=== PATIENT | male | born 1995 | race Caucasian/White ===

== ENCOUNTER → 2018-08-13 16:48 | Outpatient (CLI) | payer BC, SELFPAY ==
--- NOTE | 2018-08-13 16:53 | US_ITS ---
STUDY: RENAL ULTRASOUND - COMPLETE REASON FOR EXAM: Male, 22 years old. Hypertension TECHNIQUE: Ultrasound evaluation of the kidneys was performed with real-time and static javier-scale imaging. COMPARISON: None. FINDINGS: RIGHT KIDNEY: Normal location of the right kidney, which is normal in size. The right kidney measures 11.9 x 6.6 x 5.5 cm. There is a normal cortex of the right kidney. The renal cortex measures 2.3 cm. There is no right renal mass or cyst. There are no right renal calculi. There is no right hydronephrosis. DISTAL RIGHT URETER: There is non-visualization of the distal right ureter. There is a visualized right ureteral jet. LEFT KIDNEY: Normal location of the left kidney, which is normal in size. The left kidney measures 11.7 x 5.7 x 5.5 cm. There is a normal cortex of the left kidney. The renal cortex measures 2.7 cm. There is no left renal mass or cyst. There are no left renal calculi. There is no left hydronephrosis. DISTAL LEFT URETER: There is non-visualization of the distal left ureter. There is a visualized left ureteral jet. BLADDER: The distended urinary bladder has a volume of 859 ml. There is a normal wall thickness of the distended urinary bladder. There is no demonstrated mass within the urinary bladder. There are no demonstrated bladder calculi. US/Kidney and Bladder IMPRESSION: Normal ultrasound of the kidneys and urinary bladder. Electronically Signed: Jasson Polanco DO at 20:08 EST Tel [phone], Service support ,
== END ==
PROVIDERS: Family Provider Nurse Practitioner; PCP Nurse Practitioner; Referring Provider Nurse Practitioner; Visit Provider Nurse Practitioner
DX: I10 Essential (primary) hypertension (principal)
CPT/HCPCS: 76770

== ENCOUNTER 2019-02-03 10:19 | Emergency (ER) | payer SELFPAY ==
[2019-02-03 10:19] VITALS: BP 169/98; PULSE 91; RESP 16; TEMP 36.1; O2SAT 98; BMI 35.6
--- NOTE | 2019-02-03 10:49 | RAD_ITS ---
STUDY: X-RAY CHEST REASON FOR EXAM: Male, 23 years old. Chest pain TECHNIQUE: PA and lateral views of the chest. COMPARISON: None. FINDINGS: The lungs are clear and expanded. There is no demonstrated pleural abnormality. Normal size heart. Normal mediastinum and zack. Normal visualized pulmonary arteries. Normal visualized aortic arch and descending thoracic aorta. Normal visualized thoracic spine. Normal visualized ribs, clavicles, and shoulders. There is no demonstrated abnormality of the visualized soft tissue structures of the upper abdomen. RAD/Chest PA and Lateral IMPRESSION: Normal x-ray examination of the chest. Electronically Signed: Maxine Lee, at 12:32 EDT Tel , Service support ,
--- NOTE | 2019-02-03 10:49 | EKG12_ITS ---
Test Reason : CP Blood Pressure : / mmHG Vent. Rate : 071 BPM Atrial Rate : 071 BPM P-R Int : 152 ms QRS Dur : 098 ms QT Int : 360 ms P-R-T Axes : 035 032 034 degrees QTc Int : 391 ms Sinus rhythm with marked sinus arrhythmia Otherwise normal ECG Confirmed by EVON ALVAREZ ([id number]), editor magazine DARRELL DEL VALLE ([id number]) on 02/09/2019 9:43:15 AM Referred By: KAVITA Confirmed By:EVON ALVAREZ
--- NOTE | 2019-02-03 10:50 | ED.VISSUMM ---
- ER Visit Summary Date of Service: 02/03/19 Chief Complaint: Chest pain, dizziness, shortness of breath History of Present Illness: The patient is a 23 M who presents with chest pain, dizziness, and shortness of breath that has been constant for the past few months. Patient states his lisinopril was stopped approximately 4 to 6 months ago. Patient states his symptoms began approximately 1 to 2 months after stopping the lisinopril. Patient states that he check his blood pressure at home and it was 169/109. Patient then went to [facility]. Patient states he had an EKG and an IV done at that time. Patient admits to some nausea. Patient admits to some dysuria. Patient admits to fever of 101 at home. Physical Examination: Vital signs are stable for slightly elevated blood pressure 169/98. Patient is afebrile. Patient is in no acute distress. Oral mucosa is pink and moist. Neck is supple. Trachea is midline. There is no JVD noted. Heart was regular rate and rhythm. Lungs are clear and equal bilateral. Abdomen is soft. Bowel sounds are normal. There is no tenderness. There is no guarding noted. Skin is warm dry. Cranial nerves II through XII are intact. There are no focal motor or sensory deficits noted. The remaining physical exam is within normal limits. Test Results: EKG showed normal sinus rhythm with a rate of 71. There are no acute ST or T wave changes. CBC, basic metabolic profile, and troponin were obtained and were all normal. PA and lateral chest x-ray does not show any acute cardiopulmonary process. Emergency Department Course and Treatment: Patient was given a dose of lisinopril here. Patient's blood pressure improved after this. Patient was feeling better on reevaluation. Patient was given a prescription for lisinopril. Patient was instructed to follow-up with his primary care physician in 5 to 7 days. Patient understood and was agreeable with the plan. All questions were answered. Disposition: Discharge home Impression: 1. Hypertension This note was generated with [employer] dictation software. It may contain incorrect words, spelling, and punctuation that were not noted in review of the chart prior to signing ED Disposition - Plan for ED Patient: Disposition: Home or Assisted Living Diagnosis: Hypertension Instructions: HYPERTENSION, New (Begin Treatment) Prescriptions: Lisinopril [Zestril] 10 mg PO DAILY #30 tab Prescription Printed Referrals: Breanna Hernández, CLIENT SUPPORT REPRESENTATIVE-C [Primary Care Provider] - 5-7 Days
--- NOTE | 2019-02-03 10:53 | NURSING ---
NO OLD EKGS
[2019-02-03 11:14] LABS: Absolute Lymphocyte Count 1.88 X10^3/uL (0.83-4.51); Absolute Neutrophil Count 3.9 X10^3/uL (2.0-7.7); Basophil# 0.04 X10^3/uL; Basophil% 0.6 % (0-1); Eosinophil# 0.06 X10^3/uL; Eosinophils% 0.9 % (0-5); Hematocrit 47.5 % (40-54); Hemoglobin 16.5 g/dL (13.0-16.5); Lymphocyte # 1.88 X10^3/ul (4.0); Lymphocyte % 29.6 % (19-41); Mean Corp Hgb Conc 34.7 g/dL (32-36); Mean Corpuscular Hgb 29.1 pg (27.0-32.0); Mean Corpuscular Volume 83.8 fL (80-94); Mean Platelet Vol. 9.6 fl (6.2-12.0); Monocyte# 0.48 X10^3/uL; Monocyte% 7.6 % (0-10); NRBC Flagged by Analyzer 0 % (0-5); Neutrophil # 3.87 X10^3/uL (2.7-7.7); Platelet Count 211 K/mm3 (150-450); RBC Distribution Width CV 11.6 % (11.6-14.6); Red Blood Count 5.67 M/mm3 (4.6-6.2); White Blood Count 6.4 K/mm3 (4.4-11.0)
[2019-02-03 11:33] LABS: Anion Gap 2 (5-15); BUN 13 mg/dL (7-18); BUN/Creat Ratio 14.8 RATIO (10-20); Chloride 107 mmol/L (98-107); Creatinine, Serum 0.88 mg/dL (0.70-1.30); EST Glomerular Filtration Rate 116 mL/min (>60); Est Glom Filt Rate - Afr Amer 141 mL/min (>60); Estimated Creatinine Clearance 150.06 ml/min; Glucose 105 mg/dL (74-106); Potassium 4.4 mmol/L (3.5-5.1); Sodium Level 141 mmol/L (136-145)
[2019-02-03] MEDS: Lisinopril 10 MG Tablet PO (11:58)
[2019-02-03 11:59] VITALS: BP 120/65; PULSE 66; RESP 25; O2SAT 99
[2019-02-03 12:49] VITALS: BP 127/83; PULSE 61; RESP 20; O2SAT 99
[2019-02-03 13:51] VITALS: BP 118/78; PULSE 61; RESP 16; O2SAT 99
== END 2019-02-03 13:52 | disposition home or self-care (01) ==
PROVIDERS: Emergency Provider Emergency Medicine; Family Provider Nurse Practitioner; PCP Nurse Practitioner
DX: I10 Essential (primary) hypertension (principal); R07.9 Chest pain, unspecified; R30.0 Dysuria; R11.0 Nausea; M54.9 Dorsalgia, unspecified; M54.2 Cervicalgia; R06.00 Dyspnea, unspecified; F17.220 Nicotine dependence, chewing tobacco, uncomplicated; Z79.899 Other long term (current) drug therapy
CPT/HCPCS: 71046; 80048; 84484; 85025; 93005; 99285; A4216

== ENCOUNTER 2021-01-01 19:29 | Emergency (ER) | payer SELFPAY ==
[2021-01-01 19:30] VITALS: BP 164/93; PULSE 100; RESP 16; TEMP 36.4; O2SAT 98; BMI 37.4
--- NOTE | 2021-01-01 20:29 | EDS_ITS ---
HPI History of Present Illness Chief Complaint: Cough Informant: patient and spouse/S.O. Narrative Narrative: 25-year-old male presents the emergency department for the evaluation of cough and vomiting. Patient states that he had a slight cough yesterday but went to work today feeling fine. He leaves work at approximately 1500 hrs. when he got to his car began to have dry heaves and a lot of nausea. His cough seemed to also worsened. He feels generalized body aches. No reported fevers. He notes that his chest is sore in the center of his chest when he coughs and when he vomits. No diarrhea. He recently traveled last week to [place] for vacation. No other family members are ill. [facility] Medical History Diabetes Osteoporosis Home Medications lisinopril 10 mg PO DAILY #30 tab 02/03/19 [Rx Last Taken Unknown] metformin 500 mg PO BID 01/01/21 [History Last Taken Unknown] ondansetron 4 mg PO Q6H PRN PRN #10 tab 01/01/21 [Rx Last Taken Unknown] Allergy/AdvReac Type Severity Reaction Status Date / Time No Known Allergies Allergy Verified 02/03/19 10:20 Social History (Updated 01/01/21 @ 20:[address] Roscoe Joe DO) Smoking Status: Never smoker substance use type: does not use ROS ROS ED Constitutional Constitutional ED: Denies chills or weight loss Eyes Eyes: Denies change in vision or diplopia ENT ENT ED: Denies ear pain, rhinorrhea or sore throat Cardiovascular Cardiovascular: Denies chest pain, orthopnea, palpitations or racing heartbeat Respiratory/Chest Respiratory/Chest: Reports cough; Denies dyspnea or orthopnea Gastrointestinal Gastrointestinal: Reports nausea and vomiting; Denies abdominal pain or diarrhea Genitourinary Genitourinary ED: Denies dysuria, hematuria or urinary frequency Musculoskeletal Musculoskeletal: Reports myalgias; Denies arthralgias Integumentary Denies abscess or rash Neurologic Neurologic: Denies headache(s) or weakness Psychiatric Psychiatric: Denies anxiety, depression, suicidal ideation or suicidal thoughts Endocrine Endocrinology: Denies polydipsia, polyphagia or polyuria Allergic/Immunologic Allergic/Immunologic ED: Denies mouth swelling, tongue swelling or urticaria EXAM Physical Exam Const Vital Signs: 01/01/21 19:30 Temperature 97.6 F L Temperature Source Temporal Pulse Rate 100 Respiratory Rate 16 Blood Pressure 164/93 H Blood Pressure Mean 116 Pulse Ox 98 Oxygen Delivery Method Room Air Positive well nourished, well developed and obese General Appearance ED: well developed Nutritional Appearance: obese HEENT Reports normocephalic, head/scalp atraumatic and moist mucous membranes Eyes PERRL and EOMs intact bilaterally Neck no lymphadenopathy, supple and no JVD Chest Wall Chest: other TTP midsternal Resp normal respiratory effort and clear to auscultation bilaterally Cardio regular rate, regular rhythm and no murmurs GI normal to inspection, nondistended, normoactive bowel sounds and non-tender Palpation: soft Back/Spine no CVA tenderness and normal ROM Extremity normal to inspection General Extremety ED: Negative for edema General Extremity: Negative for edema Neuro oriented x3 and CN's II-XII intact bilaterally Sensorium / Orientation: alert Motor Exam: strength 5/5 throughout Psych mental status grossly normal Mood & Affect: Negative for depressed or tearful Skin no rashes or lesions noted and no wounds MDM MDM MDM Narrative Medical decision making narrative: Basic blood work showed a nonspecific white count of 13.9. The abdomen has remained nontender. I suspect is probably mostly from the stress of vomiting and coughing. My dictation of the chest x- ray is no acute process. Glucose noted to be 317. Creatinine 1.0. Sodium 134. Lipase 82. At this point patient be discharged home. I will write for Hallie. I suspect his chest pain that he is experiencing is mostly from strain of vomiting as it is worse with cough vomiting and is reproducible Lab Data Attestation: I reviewed the patient's lab results. Labs: Laboratory Results - last 24 hr 01/01/21 01/01/21 20:15 20:15 WBC 13.9 H RBC 5.59 Hgb 16.2 Hct 46.9 MCV 83.9 MCH 29.0 MCHC 34.5 RDW Std Deviation 35.0 L RDW Coeff of Diego 11.7 Plt Count 192 MPV 10.5 Immature Gran % (Auto) 0.400 Neut % (Auto) 80.7 H Lymph % (Auto) 11.7 L [place] % (Auto) 5.8 Eos % (Auto) 1.0 Baso % (Auto) 0.4 Absolute Neuts (auto) 11.3 H Absolute Lymphs (auto) 1.63 Nucleated RBC % 0 Sodium 134 L Potassium 3.9 Chloride 99 Carbon Dioxide 29.0 Anion Gap 6 BUN 12 Creatinine 1.00 Estim Creat Clear Calc 129.84 Est GFR (MDRD) Af Amer 119 Est GFR (MDRD) Non-Af 98 BUN/Creatinine Ratio 12.0 Glucose 317 H Calcium 8.9 Total Bilirubin 0.60 AST 33 ALT 119 H Alkaline Phosphatase 80 Total Protein 7.8 Albumin 3.6 Globulin 4.2 Albumin/Globulin Ratio 0.9 Lipase 82 Radiography Diagnostic Testing: Radiology Impression Chest X-Ray 01/01/21 20:37 IMPRESSION: Normal x-ray examination of the chest. Electronically Signed: Luis Fernando Felton MD at 21:18 EDT , Service support , Discharge Plan Triage Chief Complaint: Cough ED Provider: Roscoe Joe Dx/Rx/DC Orders Clinical Impression: Vomiting, Cough Instructions: ED Vomiting (Adult) Prescriptions: New ondansetron [ondansetron] 4 MG tablet 4 mg PO Q6H PRN PRN (Reason: Nausea) Qty: 10 RF: 0 No Action lisinopril 10 MG tablet 10 mg PO DAILY Qty: 30 RF: 0 metformin 500 mg tablet extended release 24 hr 500 mg PO BID RF: 0 Primary Care Provider: Care Physician,No Primary Referrals: Amira Trujillo MD [STAFF PHYSICIAN] - As Needed Care Physician,No Primary [Primary Care Provider] - Disposition Disposition: Home, Self Care
--- NOTE | 2021-01-01 20:37 | RAD_ITS ---
STUDY: X-RAY CHEST REASON FOR EXAM: Male, 25 years old. Cough TECHNIQUE: Single AP portable view of the chest. COMPARISON: Comparison is made with prior study dated 02/03/2019. FINDINGS: The lungs are clear and expanded. Scattered calcified granulomas. There is no demonstrated pleural abnormality. Normal size heart. Normal mediastinum and zack. Normal visualized pulmonary arteries. Normal visualized aortic arch and descending thoracic aorta. Normal visualized thoracic spine. Normal visualized ribs, clavicles, and shoulders. There is no demonstrated abnormality of the visualized soft tissue structures of the upper abdomen. RAD/Chest 1 View (Portable) IMPRESSION: Normal x-ray examination of the chest. Electronically Signed: Luis Fernando Felton MD at 21:18 EDT , Service support ,
[2021-01-01] MEDS: Ondansetron 4 MG/2 ML Vial IV (20:42)
[2021-01-01] MEDS: Ketorolac 30 MG/ML Syringe IV (20:42)
[2021-01-01 21:01] LABS: Absolute Lymphocyte Count 1.63 X10^3/uL (0.83-4.51); Absolute Neutrophil Count 11.3 X10^3/uL (2.0-7.7); Basophil# 0.05 X10^3/uL; Basophil% 0.4 % (0-1); Eosinophil# 0.14 X10^3/uL; Hematocrit 46.9 % (40-54); Hemoglobin 16.2 g/dL (13.0-16.5); Lymphocyte # 1.63 X10^3/ul (0.83-4.51); Lymphocyte % 11.7 % (19-41); Mean Corp Hgb Conc 34.5 g/dL (32-36); Mean Corpuscular Volume 83.9 fL (80-94); Mean Platelet Vol. 10.5 fl (6.2-12.0); Monocyte# 0.81 X10^3/uL; Monocyte% 5.8 % (0-10); NRBC Flagged by Analyzer 0 % (0-5); Neutrophil # 11.25 X10^3/uL (2.7-7.7); Neutrophil % 80.7 % (47-70); Platelet Count 192 K/mm3 (150-450); RBC Distribution Width CV 11.7 % (11.6-14.6); Red Blood Count 5.59 M/mm3 (4.6-6.2); White Blood Count 13.9 K/mm3 (4.4-11.0)
[2021-01-01 21:25] LABS: ALB/GLOB Ratio 0.9 RATIO (0.9-2.4); AST(SGOT) 33 U/L (15-37); Alanine Aminotransfer ALT/SGPT 119 U/L (16-61); Albumin, Serum 3.6 g/dL (3.2-5.0); Alkaline Phosphatase 80 U/L (45-117); Anion Gap 6 (5-15); BUN 12 mg/dL (7-18); Calcium,Total 8.9 mg/dL (8.5-10.1); Chloride 99 mmol/L (98-107); EST Glomerular Filtration Rate 98 mL/min (>60); Est Glom Filt Rate - Afr Amer 119 mL/min (>60); Estimated Creatinine Clearance 129.84 ml/min; Globulin 4.2 g/dL (2.2-4.2); Glucose 317 mg/dL (74-106); Lipase 82 U/L (73-393); Potassium 3.9 mmol/L (3.5-5.1); Protein, Total 7.8 g/dL (6.4-8.2); Sodium Level 134 mmol/L (136-145)
[2021-01-01 22:08] VITALS: BP 158/88; PULSE 89; RESP 16; O2SAT 97
== END 2021-01-01 22:09 | disposition home or self-care (01) ==
PROVIDERS: Emergency Provider Emergency Medicine
DX: R11.2 Nausea with vomiting, unspecified (principal); R05 Cough; Z20.822 Contact with and (suspected) exposure to COVID-19; E11.9 Type 2 diabetes mellitus without complications; M81.0 Age-related osteoporosis without current pathological fracture; E66.9 Obesity, unspecified; Z79.84 Long term (current) use of oral hypoglycemic drugs; Z79.899 Other long term (current) drug therapy
CPT/HCPCS: 71045; 80053; 83690; 85025; 87426; 87804; 96374; 96375; 99282; A4216; J2405

== ENCOUNTER → 2025-02-28 | Outpatient (CLI) | payer SELFPAY ==
--- NOTE | 2025-02-28 15:29 | MRI_ITS ---
PROCEDURE: LOWER EXT JOINT ONLY (ROUTINE) 02/28/2025 REASON FOR EXAM: CONTUSION LEFT KNEE TECHNIQUE: Procedure Code: MRILEJ Modality: MR Procedure: LOWER EXT JOINT ONLY (ROUTINE) Multiplanar and multisequence images were obtained without IV contrast administration. COMPARISON: none FINDINGS: The body and posterior horn of the lateral meniscus show linear high signal interrupting the meniscal articular surfaces. Intact lateral meniscus. The anterior cruciate ligament shows mild high signal. Normal appearance of the posterior cruciate ligament. Intact collateral and retinacular ligaments as well as the patellar tendon. Mild knee joint effusion. Distal femoral shaft intramedullary tiny cyst. No marrow infiltrative lesions. Normal MR appearance of the tresa-articular musculature with preserved inter- muscular fat planes. MRI/Lower Ext Joint Only (Routine) IMPRESSION: Inferior surface tar of the body and posterior horn of the medial meniscus. Anterior cruciate ligament grade I sprain. Mild knee joint effusion. [facility]
== END | disposition home or self-care (01) ==
PROVIDERS: Referring Provider Family Medicine; Visit Provider Family Medicine
DX: S80.02XA Contusion of left knee, initial encounter (principal); X58.XXXA Exposure to other specified factors, initial encounter
CPT/HCPCS: 73721